=== PATIENT | female | born 1990 | race Caucasian/White ===

== ENCOUNTER 2017-10-10 14:04 | Emergency (ER) | payer OTHER ==
[~2017-10-10] VITALS: Ht 160 cm; Wt 90.7 kg
[2017-10-10] MEDS ORDERED: ONDANSETRON HCL INJ 2 MG/ML VIAL IV STA (14:47)
[2017-10-10] MEDS ORDERED: SODIUM CHLORIDE 0.9% 1000ML 1,000 ML IV SCH (15:00)
[2017-10-10 18:32] VITALS: BP 122/68
== END 2017-10-10 18:35 | disposition home or self-care (01) ==
LOC: FSED 14:04
DX: R11.2 Nausea with vomiting, unspecified (principal); R19.7 Diarrhea, unspecified; K52.9 Noninfective gastroenteritis and colitis, unspecified; K29.00 Acute gastritis without bleeding; Z98.84 Bariatric surgery status
CPT/HCPCS: 80048; 80053; 80076; 81003; 81025; 85025; 96374; 99283; J2405